=== PATIENT | female | born 1970 | race Caucasian/White ===

== ENCOUNTER 2018-08-18 01:28 | Outpatient (CLI) | payer OTHER, SELFPAY ==
[2018-08-18 08:43] LABS: Absolute Basophil Count 0.01 k/cumm (0.0-0.2); Absolute Eosinophil Count 0.06 k/cumm (0.0-0.7); Absolute Monocyte Count 0.33 k/cumm (0.11-0.7); Absolute Neutrophil Count 2.09 k/cumm (1.2-6.7); Basophils % 0.3; Eosinophils % 1.8; HCT 42.8 % (36.0-46.0); HGB 14.7 g/dL (12.0-15.5); Lymphocytes % 26.5; Mean Corp. HGB Concentration 34.3 g/dL (32.0-36.0); Mean Corpuscular Hemoglobin 29.8 pg (27.0-33.0); Mean Corpuscular Volume 86.8 fL (80-95); Mean Platelet Volume 9.7 fL (8.0-11.0); Monocytes % 9.7; Neutrophils % 61.7; Platelet Count 236 x1000/uL (130-400); RBC 4.93 m/cumm (4.00-5.20); RBC Distribution Width 12.8 % (11.7-14.6); White Blood Cell Count 3.39 k/cumm (4.4-10.8)
[2018-08-18 09:37] LABS: ALT 26 U/L (12-78); AST 17 U/L (15-37); Albumin 3.9 g/dL (3.4-5.0); Alkaline Phosphatase 58 U/L (46-116); Anion Gap 6.9 mmol/L (3-11); BUN 10 mg/dL (7-18); Bilirubin, Total 0.6 mg/dL (0.2-1.0); CO2 30.1 mmol/L (21.0-32.0); CREATININE 0.81 mg/dL (0.55-1.02); Calcium 9.3 mg/dL (8.5-10.1); Chloride 102 mmol/L (98-107); Cholesterol 268 mg/dL (50-200); Glucose 106 mg/dL (70-100); HDL Cholesterol 57 mg/dL (40-60); LDL CHOLESTEROL 196 mg/dL (<100); Sodium 139 mmol/L (136-145); TSH (W/Ref FT4) 1.61 uIU/mL (0.358-3.74); Total Protein 7.1 g/dL (6.4-8.2); Triglyceride 52 mg/dL (30-150)
[2018-08-18 17:14] LABS: Estradiol 85 pg/ml
== END 2018-08-18 01:48 ==
PROVIDERS: Obstetrics & Gynecology; PCP Family Medicine; Visit Provider Family Medicine
DX: E78.01 Familial hypercholesterolemia (principal); K21.9 Gastro-esophageal reflux disease without esophagitis; R63.5 Abnormal weight gain; N92.6 Irregular menstruation, unspecified
CPT/HCPCS: 36415; 80053; 80061; 83721; 82670; 84443; 85025

== ENCOUNTER 2018-09-07 00:13 | Outpatient (CLI) | payer OTHER, SELFPAY ==
--- NOTE | 2018-09-07 06:54 | DI.US_ITS ---
SYMPTOMS/DIAGNOSIS: H/O ENDOMETRIAL HYPERPLASIA, N85.0 PELVIC ULTRASOUND: The uterus measures 8.5 cm in length, 6.0 cm in height and 7.9 cm in width with an endometrial stripe thickness of 6.1 cm. There are multiple uterine fibroids, the largest of which measures 3.1 x 3.3 x 3.3 cm in the right uterine fundus. A small quantity of fluid is identified in the endometrial cavity. An IUD is noted in good position. There is a small nabothian cyst. The right ovary measures 3.6 x 2.7 x 3.4 cm, the left ovary 3.5 x 2.1 x 2.2 cm. Bilateral follicular cysts are identified. SUMMARY: Multiple uterine fibroids are demonstrated. An IUD is in good position in the endometrial cavity.
--- NOTE | 2018-09-07 09:00 | DI.MAMMO_ITS ---
SYMPTOM/DIAGNOSIS: SCREENING, Z12.31 MAMMOGRAMS: Mammograms were interpreted according to the usual protocol including computer analysis with CAD system, tomosynthesis and C view imaging. The breast tissue is of moderate radiodensity. There is no evidence of a mass. There are no suspicious calcifications and there has been no significant interval change when compared with prior images. IMPRESSION: No evidence of malignancy, category 1. Yearly screening mammography is recommended. Breast density, Category B. SA ASSESSMENT OF FINDINGS: Negative. Category 1. Patient will receive a letter notifying them of these results. BI-RADS category B. There are scattered areas of fibroglandular density.
== END 2018-09-07 00:33 ==
PROVIDERS: PCP Family Medicine; Visit Provider Obstetrics & Gynecology
DX: N85.00 Endometrial hyperplasia, unspecified (principal); D25.9 Leiomyoma of uterus, unspecified; Z97.5 Presence of (intrauterine) contraceptive device; Z12.31 Encounter for screening mammogram for malignant neoplasm of breast
CPT/HCPCS: 77063; 77067; 76830; 76856

== ENCOUNTER 2021-05-30 12:27 | Outpatient (REF) | payer OTHER, SELFPAY ==
--- NOTE | 2021-05-30 10:00 | PAPFT_PTH ---
PATIENT: Iris Cole LOC: [facility] U#:[id number] AGE/SX: 50/F ROOM: RE05/30/[address]: WILMER Telles : 1970 BED: DIS: 05/30/2021 SPEC #: [id number] RECD: 05/30/21 12:54 STATUS: SANTINO REQ #: [id number] NATALEE: 05/30/21 10:[address]: Pam Castro DEPT: [facility] Cytology RECD BY: Krysta Chris ENTERED: 05/30/21 12:54 SP TYPE: PAPFT OTHR DR: Sabrina Simpson MD, DC Tissues: 1 - CX/ENDOCX FOR PAP SMEARS Procedures: PAP THIN PREP/UVM Screening HPV DNA PROBE Comments: [id number]
== END 2021-05-30 12:28 | disposition home or self-care (01) ==
LOC: LBN 12:27
PROVIDERS: PCP Family Medicine; Visit Provider Nurse Practitioner Family
DX: Z12.4 Encounter for screening for malignant neoplasm of cervix (principal); Z11.51 Encounter for screening for human papillomavirus (HPV)
CPT/HCPCS: 88142; 87624

== ENCOUNTER 2021-09-09 03:12 | Outpatient (CLI) | payer OTHER, SELFPAY ==
[2021-09-09 10:25] LABS: Source Nasal/Nares
[2021-09-09 19:41] LABS: COVID-19 PCR Negative (Negative)
== END 2021-09-09 03:13 | disposition home or self-care (01) ==
LOC: LBO 03:12
PROVIDERS: PCP Family Medicine; Visit Provider Obstetrics & Gynecology Gynecology
DX: Z20.822 Contact with and (suspected) exposure to COVID-19 (principal); Z01.818 Encounter for other preprocedural examination
CPT/HCPCS: 87635

== ENCOUNTER 2021-09-09 04:06 | Outpatient (CLI) | payer OTHER, SELFPAY ==
[2021-09-09 08:19] LABS: HCT 42.8 % (36.0-46.0); HGB 13.9 g/dL (11.2-15.7); MCHC 32.5 % (32.0-36.0); MCV 89 fL (80-95); MPV 9.3 fL (8.0-11.0); Platelet Count 269 10^3/uL (130-400); RDW 12.7 % (11.7-14.6); RDW-SD 41.9 fL; WBC 4.93 10^3/uL (4.4-10.8)
[2021-09-09 10:00] LABS: Anion Gap 8.7 mmol/L (3-11); BUN 15 mg/dL (7-18); CO2 25.3 mmol/L (21.0-32.0); CREATININE 0.7 mg/dL (0.55-1.02); Calcium 8.6 mg/dL (8.5-10.1); Chloride 104 mmol/L (98-107); Glucose 107 mg/dL (74-106); Potassium 4.2 mmol/L (3.5-5.1); Sodium 138 mmol/L (136-145)
== END 2021-09-09 04:07 | disposition home or self-care (01) ==
LOC: LBO 04:06
PROVIDERS: PCP Family Medicine; Visit Provider Obstetrics & Gynecology Gynecology
DX: N93.8 Other specified abnormal uterine and vaginal bleeding (principal); D25.9 Leiomyoma of uterus, unspecified; Z01.818 Encounter for other preprocedural examination; Z01.812 Encounter for preprocedural laboratory examination
CPT/HCPCS: 36415; 80048; 85027; 86850; 86900; 86901

== ENCOUNTER 2021-09-11 10:32 | Observation (INO) | payer OTHER, SELFPAY ==
[2021-09-11] VITALS (22 sets, daily range): BP systolic 84–132; BP diastolic 40–78; PULSE 58–86; RESP 12–20; TEMP 35.9–36.7; O2SAT 93–100; BMI 28.0
--- NOTE | 2021-09-11 06:55 | W.ANESPRE ---
General Info Date of Service Date Performed: 09/11/21 Height: 5 ft 6.5 in Weight: 80 kg Body Mass Index (BMI): 28.0 Surgical Procedure: Operation Date: 09/11/21 07:40 Proposed Procedure Side Surgeon p Hysterectomy Vaginal Laparoscopic Assist w/Bladder Cystectomy Tabitha Bach MD Meds Allergies and Home Medications Allergies Allergy/AdvReac Type Severity Reaction Status Date / Time Sulfa (Sulfonamide Allergy Intermediate SWELLING Verified 09/11/21 06:26 Antibiotics) AND RASH Home Medication Medication Instructions Recorded levonorgestrel 20 mcg/24 hours (7 1 insert intrauterine ONCE #1 05/11/18 yrs) 52 mg intrauterine device implant (Mirena) vitamin B complex (B 1 tab PO DAILY 08/24/18 Complex-Vitamin B12 tablet) ascorbic acid (vitamin C) 1,000 mg 1 g PO DAILY 07/04/21 tablet cholecalciferol (vitamin D3) 25 25 mcg PO DAILY 07/04/21 mcg (1,000 unit) capsule dindolylmethane 1 cap PO DAILY 07/04/21 Current Visit Medications: Current Medications Generic Name Dose Route Start Last Admin Trade Name Freq PRN Reason Stop Dose Admin Ringer's Solution 1,000 mls @ 125 mls/hr 09/11/21 06:00 IV 10/10/21 23:59 INFUSION RASHMI Cefazolin Sodium/Dextrose 2 gm in 50 mls @ 100 mls/hr 09/11/21 06:00 Ancef Duplex IVPB 10/10/21 23:59 PREOP RASHMI IV Miscellaneous Supplies 1 each 09/11/21 06:00 Iv Access IV 10/10/21 23:59 DIRECTED RASHMI Sodium Chloride 0 ml 09/11/21 06:00 Normal Saline Flush 10 Ml Syr IV 10/10/21 23:59 PRN PRN Sodium Chloride 0 ml 09/11/21 06:00 Normal Saline 10 Ml Vial IJ 10/10/21 23:59 DIRECTED PRN Sterile Water 0 ml 09/11/21 06:00 Water,Injection,Sterile 10 Ml Vial IJ 10/10/21 23:59 DIRECTED PRN PFSH Active Problems Active Problems: Problem Status Onset Code Uterine fibroid D25.9 Abnormal uterine bleeding (AUB) N93.9 Family history of AK (myocardial infarction) Z82.49 Hypercholesterolemia E78.00 Gastroesophageal reflux disease K21.9 Familial hypercholesterolemia 02/26/15 E78.01 Family history of pancreatitis 06/15/14 Z83.79 Endometrial hyperplasia, unspecified 09/07/12 N85.00 Chronic endometritis 08/28/17 N71.1 Anxiety F41.9 Medical History Medical History Comments:: Per pt. states her father stops breathing when he has anesthesia, pt. states he does have sleep apnea Surgical History Surgical History CYST REMOVAL (~08/2012) FROM HEAD Tobacco Smoking/Tobacco Use Status: Never Alcohol Alcohol Intake: current Alcohol intake frequency: 3 or more drinks per day Alcohol type: wine Substance Use Substance use: Never Substance use type: does not use Prental History History 2 Para 2 Hx # Term Pregnancies Multiple births Hx # Pregnancies Ectopic pregnancies AB induced Hx Number of Living Children 2 AB spontaneous Vital Signs and Lab Results Vital Signs Most Recent Vital Signs in EMR: Most Recent Vital Signs Temp Pulse Resp BP Pulse Ox 36.7 C 86 18 132/78 100 09/11/21 06:20 09/11/21 06:20 09/11/21 06:20 09/11/21 06:20 09/11/21 06:20 Lab Results Blood Type / Crossmatch: Patient ABO/Rh O Positive 09/09/21 Antibody Screen NEGATIVE 09/09/21 Complete Blood Count: White Blood Count 4.93 10^3/uL (4.4-10.8) 09/09/21 08:10 Red Blood Count 4.80 10^6/uL (3.93-5.22) 09/09/21 08:10 Hemoglobin 13.9 g/dL (11.2-15.7) 09/09/21 08:10 Hematocrit 42.8 % (36.0-46.0) 09/09/21 08:10 Platelet Count 269 10^3/uL (130-400) 09/09/21 08:10 Complete Metabolic Panel: Sodium Level 138 mmol/L (136-145) 09/09/21 08:10 Potassium Level 4.2 mmol/L (3.5-5.1) 09/09/21 08:10 Chloride Level 104 mmol/L (98-107) 09/09/21 08:10 Carbon Dioxide Level 25.3 mmol/L (21.0-32.0) 09/09/21 08:10 Blood Urea Nitrogen 15 mg/dL (7-18) 09/09/21 08:10 Creatinine 0.7 mg/dL (0.55-1.02) 09/09/21 08:10 Estimated GFR/1.73 m2 >= 60.00 (mL/min/1.73m2) 09/09/21 08:10 Calcium Level 8.6 mg/dL (8.5-10.1) 09/09/21 08:10 Glucose Level 107 mg/dL (74-106) H 09/09/21 08:10 Liver Function Panel: No Data to Display Coagulation Panel: No Data to Display Cardiac Panel: No Data to Display Arterial Blood Gas: No Data to Display Venous Blood Gas: No Data to Display Pancreas Panel: No Data to Display Thyroid Panel: No Data to Display Infectious Disease: Coronavirus (COVID-19)(PCR) Negative (Negative) 09/09/21 08:33 Coronavirus 2019 Source Nasal/Nares 09/09/21 08:33 Blood Cultures: No Data to Display Toxicology Panel: No Data to Display Panel: No Data to Display Anesthesia Assessment and Plan Anesthesia History Personal History: No History of Anesthesia Complications Family History: Other (Father has CAREN and stops breathing with anesthesia ) Exercise Tolerance Exercise Tolerance: Metabolic Equivalents>4 Pertinent Negatives Pertinent Negatives: No Symptoms of GERD, No Major Cardiovascular Symptoms or Complaints, No Major Pulmonary Symptoms or Complaints and No History of CVA/TIA Cardiac & Pulmonary Exam Cardiac Exam: Normal S1/S2 Heart Sounds Pulmonary Exam: Clear Bilateral Breath Sounds Implantable Cardiac Device Does patient have a Pacemaker or an ICD?: No Airway Exam Known Difficult Airway: No Mallampati Class: 1 Mouth Opening: Normal (> 3cm) Thyromental Distance: Greater than 3 cm Neck Range of Motion: Full ROM Neck Circumference: Normal Teeth Condition: Normal Dentition Airway Comments: Permanent retainer bottom- cannot be removed ASA Classification ASA Score: ASA 2 Emergency Case?: No NPO Status NPO Status: NPO Clears >2 hours, Solids >8 hours Status Status: Negative HCG Anesthesia Plan Resuscitation Status: Full Code Anesthesia Technique: General Anesthesia Airway Planned: Endotracheal Tube Monitors Used: Standard Monitors
[2021-09-11] MEDS: Lactated Ringers 1,000 ML 125 ML IV ×4 (06:57→19:49)
[2021-09-11] MEDS: ceFAZolin 2 GM/50 ML BAG IVPB (07:54)
--- NOTE | 2021-09-11 08:48 | W.ANESPROC ---
Intrathecal Analgesia Date Performed: 09/11/21 Procedure Time: 07:50 Requesting Provider: Tabitha Bach Procedure Location: Operating Room (1) Reason Performed: Postoperative Pain Standard Monitors Applied: ECG, Blood Pressure and SpO2 Patient Position: Sitting Timeout Performed: Yes Sedation Given (Indicate Dose Given): Versed IV Dose:: 2mg Patient Mental Status: Sedate with meaningful communication Sterility: Hand Hygiene, Surgical Cap, Surgical Mask, Sterile Gloves, Sterile Drape/Sheet, Eye Protection and Chlorhexidine Placement Site: L3-L4 Interspace Spinal Needle Type: Meet 25 Gauge Needle Length: 3.5 Inch Spinal Procedure: Site Prepped, Sterile Drape Placed, 1% Lidocaine to skin and subcutaneous tissue with 25G needle, Introducer Needle Used, Spinal Needle Placed, Negative Heme, Positive CSF Flow and Medication Injected Paresthesia: None Spinal Local Anesthetic (Indicate Dose Given): None Additives (Indicate Dose Given): Fentanyl PF Dose:: 15 mcg and Duramorph PF Dose:: 200 mcg Ultrasound: Not Used Number of Attempts (See previous attempts in note section): 1 Procedure Tolerated: No Complications and Patient tolerated well Procedure Outcome: Successful Performed By: Mikie Luciano
--- NOTE | 2021-09-11 09:50 | UTER_PTH ---
PATIENT: Iris Cole LOC: [facility] U#:[id number] AGE/SX: 50/F ROOM: OBS.306 RE09/11/[address]: Tabitha Bach : 1970 BED: A DIS: 09/12/2021 SPEC #: [id number] RECD: 09/11/21 12:56 STATUS: SANTINO REQ #: [id number] NATALEE: 09/11/21 09:[address]: Tabitha Bach DEPT: Surgical Specimen RECD BY: Krysta Chris ENTERED: 09/11/21 12:57 SP TYPE: UTER OTHR DR: Sabrina Simpson MD, DC Tissues: 1 - UTERUS W OR W/O OVARIES(NOT TUMOR/PROLAPSE) Procedures: GROSS AND MICRO LEVEL 5 Comments: [id number]
[2021-09-11] MEDS: Lidocaine 1% Multi-Dose W/EPI 1/100,000 50 ML VIAL (10:28)
--- NOTE | 2021-09-11 10:59 | ROE_ITS ---
Date of service: 09/11/21 Time of Service: 09:59 Operative Note Operative Note DATE OF PROCEDURE: 09/11/21 PRE-OP DIAGNOSIS: AUB, dysmenorrhea, fibroid uterus POST-OP DIAGNOSIS: same PROCEDURE: LAVH with bilateral salpingectomy and bladder cystoscopy SURGEON: Tabitha Bach ASSISTING SURGEON: Laura Prakash Refer to Anesthesia Record ESTIMATED BLOOD LOSS: 700 PATHOLOGY: other (uterus, bilateral fallopian tubes to pathology) COMPLICATIONS: None Patient was transported to: PACU Patient's condition: stable Indications: Pt is a 50yo female with longstanding hx of heavy menses not responsive to placement of a Levonorgestrel IUD. She continued with intermittent heavy menses and accompanying pelvic pain. Findings: Enlarged uterus with fibroid occupying fundus of uterus. IUD string not visualized at the cervix during the vaginal portion of the case. After the uterus was removed it was bivalved and the Levonorgestrel IUD was retrieved from inside the uterine cavity. Normal ovaries, normal upper abdomen. Appendix was not visualized. Cystoscopy was performed at completion of the case. Brisk efflux of urine from the both ureteral orifces visualized. Procedure Description: Patient was taken to the operating room where she was placed in the sitting position and spinal anesthesia was administered. She received 2 g of Ancef prior to skin incision. She was then placed in the dorsal supine position and general endotracheal anesthesia was administered without difficulty. She was then placed in the dorsal lithotomy position in [facility] stirrups with SCDs in place. After being prepped and draped in the usual sterile fashion a surgical timeout was performed. Phillips catheter was placed to gravity drainage. A bivalve speculum was placed in the vagina the anterior lip of the cervix was grasped with a single-tooth tenaculum. A Jo-Ann uterine manipulator was successfully inserted into the uterine cavity, the catheter bulb inflated with 8 cc of normal saline and the device left in place. Attention was then turned to the patient's abdom en. The umbilical fold was infiltrated with quarter percent Marcaine without epinephrine. A scalpel was then used to make a 12mm vertical skin incision in the umbilical fold. Two penetrating towel clips were used to tent up the skin and through the periumbilical incision and a Veres needle was introduced into the abdomen with carbon dioxide as the distention medium. Intra-abdominal placement was confirmed by a drop in the intra-abdominal pressure. Once a pneumoperitoneum was established a 12 mm Visiport was placed under direct visualization and intra-abdominal placement confirmed by use of the laparoscope. Patient was then placed in Trendelenburg position. At two sites approximately 6 cm diagonally from the umbilical incision the skin was infiltrated with 1cc of 0.25% Marcaine without epinephrine, incised with a scalpel and two 5 mm lower ports were placed under direct visualization. After careful inspection of the pelvis a LigaSure electrocautery device was used to clamp, cauterize and transect the left fallopian tube remnant from its attachment to the surface of the left ovary. It was then delivered through the 12mm umbilical port. Left ovarian ligament was then similarly clamped cauterized and transected from its attachment to the body of the uterus. The left round ligament and broad ligament were then clamped, cauterized and transected to the level of the lower uterine segment. The vesico-uterine peritoneum was incised and the the from the lower uterine segment and mobilized off of the body of the cervix. The pedicles of the suspensory, round and broad ligaments were inspected and noted to be hemostatic. On the contralateral side the right fallopian tube remnant was clamped,cauterized and transected from the body of the R ovary. It was then delivered through the 12mm umbilical port. The ovarian ligament, round, and right broad ligaments were sequentially clamped, cauterized and transected using the Ligasure device to the level of the insertion of the uterine artery. The remaining the vesicouterine peritoneum was incised across the lower uterine segment and the bladder flap created using the Ligasure device and gentle counter traction. All pedicles were inspected and noted to be hemostatic. Decision was made to proceed with the vaginal portion of the case. Laparoscopic instruments were removed from the ports , the pneumoperitoneum was reduced, and the was abdomen covered with sterile drape. A weighted vaginal speculum was placed in the vagina and the anterior and posterior lips of the cervix were grasped with Anjel clamps. A solution of 1% lidocaine with dilute epinephrine was used to infiltrate the body of the cervix in a circumferential fashion followed by a circumferential incision of the cervical epithelium with Bovie electrocautery. The vesicouterine fascia was identified and the anterior cul-de-sac was entered using blunt and sharp disection. Through this incision a curved right angled retractor was inserted and used to retract the bladder away from the operative field. The posterior cul-de-sac was entered sharply and through the this incision a long billed weighted speculum was placed. The left and right uterosacral ligament complexes were identified clamped, transected and suture-ligated and the suture held long. The remaining right and left broad ligament attatchments were sequentially clamped, cauterized, and transected and the specimen was passed off of the operative field. All of the pedicle sites were inspected and were hemostatic. The vaginal cuff was reapproximated in a vertical fashion with a running locked suture of 0 Vicryl. Instruments removed from the vagina and attention was again turned to the abdomen where a pneumoperitoneum was reestablished and the pelvis inspected using the laparoscope. The vaginal cuff was intact and was hemostatic as were the round ligament and broad ligament pedicles both at 15mmHg and when the pressure was temporarily reduced to 5mmHg. The instruments were removed from the port sites under direct visualization, the pneumoperitoneum reduced, and the ports removed. The fascia of the periumbilical skin incision was closed with interrupted suture of 0 Vicryl. The skin of all port site incisions were reapproximated with a subcuticular closure of 4-0 Monocryl and and covered with skin glue. A cystoscopy was performed with both ureteral jets patent with a brisk reflux of urine from each. The bladder was inspected and no evidence of sutures were present. Phillips catheter was reinserted to gravity drainage and the patient was placed in the dorsal supine position, awakened, extubated, and transported recovery area in stable condition. All sponge lap needle counts correct x2.
[2021-09-11] MEDS: HYDROmorphone 2 MG/ML VIAL IVP ×2 (11:22→11:24)
--- NOTE | 2021-09-11 12:51 | W.ANESPOSTOP ---
Postoperative Evaluation Date, Time and Location Date Performed: 09/11/21 Time Performed: 12:51 Patient Location: PACU Vital Signs Most Recent Imported Vital Signs: Most Recent Vital Signs Temp Pulse Resp BP Pulse Ox 36.6 C 61 15 96/45 L 100 09/11/21 12:39 09/11/21 12:39 09/11/21 12:39 09/11/21 12:39 09/11/21 12:39 Pain Score Most Recent Pain Score: Most Recent Pain Score Pain Level 4 09/11/21 12:39 Assessment Mental Status: Awake (Alert & Oriented to Patient Baseline) Airway and Respiratory Function: Patent airway with normal (patient baseline) respiratory exam Cardiovascular Function: Hemodynamically Stable Hydration Status: Adequately Hydrated Nausea & Vomiting: No Nausea or Vomiting Pain: Pain is tolerable per patient Peripheral Nerve Block: Patient did not receive a nerve block
[2021-09-11] MEDS: Ketorolac 30 MG/ML VIAL IVP ×2 (16:06→22:10)
[2021-09-11] MEDS: Ondansetron 4 MG/2 ML VIAL IVP ×2 (16:21→22:15)
[2021-09-11] MEDS: Scopolamine 1 MG/3 DAYS PATCH TD (17:11)
[2021-09-11] MEDS: Docusate Sodium 100 MG CAP PO (19:48)
[2021-09-12 03:15] VITALS: BP 112/59; PULSE 57; RESP 18; TEMP 36.6; O2SAT 95
[2021-09-12] MEDS: Lactated Ringers 1,000 ML 125 ML IV (03:39)
[2021-09-12] MEDS: Ketorolac 30 MG/ML VIAL IVP (04:07)
[2021-09-12] MEDS: Ondansetron 4 MG/2 ML VIAL IVP (04:10)
[2021-09-12 07:01] LABS: HCT 34.8 % (36.0-46.0); HGB 11.2 g/dL (11.2-15.7); MCH 28.8 pg (27.0-33.0); MCHC 32.2 % (32.0-36.0); MCV 90 fL (80-95); MPV 9.7 fL (8.0-11.0); Platelet Count 226 10^3/uL (130-400); RBC 3.89 10^6/uL (3.93-5.22); RDW 12.9 % (11.7-14.6); RDW-SD 42.2 fL; WBC 14.01 10^3/uL (4.4-10.8)
[2021-09-12 07:30] VITALS: BP 111/64; PULSE 61; RESP 14; TEMP 36.7; O2SAT 100
[2021-09-12] MEDS: Docusate Sodium 100 MG CAP PO (07:58)
[2021-09-12] MEDS: Cholecalciferol (Vitamin D3) 1,000 UNIT TAB 1000 UNITS PO (07:59)
[2021-09-12] MEDS: Ascorbic Acid 500 MG TAB 1000 MG PO (07:59)
--- NOTE | 2021-09-12 10:33 | W.PM.DS.N ---
Date of service: 09/12/21 Time of Service: 09:33 DS: Diagnosis Discharge Diagnosis (1) Fibroid uterus: Status: Deleted (2) Uterine fibroid: Status: Acute (3) S/P laparoscopic assisted vaginal hysterectomy (LAVH): Status: Acute Discharge Plan Disposition Patient Disposition: HOME Condition: Improving Discharge Details Reason For Visit: Laparoscopic assisted vaginal hysterectomy Admit Date/Time: 09/11/21 10:32 Admit Provider: Tabitha Bach Attending Provider: Tabitha Bach Primary Care Provider: Sabrina Simpson Hospital Course Hospital Course: Patient was admitted the morning of surgery and underwent scopic assisted vaginal hysterectomy with bilateral salpingectomy and bladder cystoscopy. She was discharged home on postop day #1 tolerating a regular diet and using ibuprofen and Percocet for pain control. Plan is to have [facility] Home Meds and New Rx's Prescriptions: New oxycodone-acetaminophen 5-325 mg Tablet 1 tab PO Q6H PRN PRNQty: 5 0RF Discontinued Mirena 20 mcg/24 hr (5 years) intrauterine device 1 insert Intrauterine ONCE Qty: 1 Label Comments: Mirena IUD placed on 05/11/2018. Lot [id number], EXP: 08/2020 Rx Instructions: IUD placed 2013 No Action vitamin B complex [B Complex-Vitamin B12] tablet 1 tab PO DAILY dindolylmethane 1 cap PO DAILY ascorbic acid (vitamin C) 1,000 mg tablet 1 g PO DAILY cholecalciferol (vitamin D3) 25 mcg (1,000 unit) capsule 25 mcg PO DAILY Discharge Instructions Additional Instructions: You may use the Percocet if your pain is not relieved by hopr-gvy-fccjobg ibuprofen (Motrin) take 600 mg of the ibuprofen every 6 hours as needed for pain. You may shower when you go home. Change the Band-Aid so that it is dry after you shower. Leave the Steri-Strips in place until they fall off. Nothing in the vagina no tampons no intercourse until your 6-week appointment. Keep your 2-week appointment with Dr. 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/Incision Activity:: Activity as Tolerated Equipment/Supplies:: No Equipment Needed Diet:: As Tolerated Discharge Orders Discharge Orders: Discharge Order (Routine); Ordered 09/12/21 Ordered By: Tabitha Bach DS: Summary Time Spent with Patient providing and/or coordinating discharge services: Less than 30 minutes Status at Discharge Functional status at discharge: independent ambulation Overall status at discharge: patient is back to baseline Mental Status: mental status grossly normal Speech and Movement: speech and movement normal Mood: congruent mood Affect: normal affect Exam Const General: no acute distress Nutritional Appearance: average body habitus Orientation: alert, awake and oriented x3 Resp Effort & Inspection: normal respiratory effort Auscultation: clear to auscultation bilaterally Cardio Rate: regular rate Rhythm: regular rhythm GI Inspection: incision (Covered with Steri-Strips and Band-Aids) Palpation: soft and nontender Auscultation: normal bowel sounds Rectal Exam - female: deferred Skin General skin exam: no rashes or lesions noted Extrem General: normal to inspection and no clubbing, cyanosis or edema Psych Appearance: grossly normal Mental Status: mental status grossly normal Speech and Movement: speech and movement normal Mood: congruent mood Affect: normal affect Attitude: cooperative DS: Data Vitals/I&O Vitals and I&O: Vital Signs Temperature 98.1 F 09/12/21 07:30 Temperature Source Oral 09/12/21 07:30 Pulse 61 09/12/21 07:30 Pulse Rhythm Regular 09/12/21 07:30 Respiratory Rate 14 09/12/21 07:30 Respiratory Effort Non-Labored 09/12/21 07:30 Respiratory Depth Normal 09/12/21 07:30 Respiratory Pattern Normal 09/12/21 07:30 Blood Pressure 111/64 09/12/21 07:30 Pulse Oximetry 100 09/12/21 07:30 Respiratory End-tidal CO2 27 09/11/21 12:39 Oxygen Delivery Method Room Air 09/12/21 07:30 Oxygen Flow Rate 0 09/12/21 07:30 Pain Level 0 09/12/21 03:15 Comment 09/11/21 15:50 Intake & Output 09/11/21 09/11/21 09/12/21 11:59 23:59 11:59 Intake Total 50 / 2194.750 2144.750 / 2194.750 1947.917 / 194.917 Output Total 900 / 1710 810 / 1710 1700 / 1700 Balance -850 / 549.269 9643.750 / 484.750 247.917 / 247.917 Weight 176 lb 5.917 oz 175 lb Intake: IV 50 / 3445.903 1312.750 / 9455.978 8206.917 / 1647.917 Oral 221 / 221 300 / 300 Output: Urine 200 / 610 410 / 610 1700 / 1700 Emesis 400 / 400 Estimated Blood Loss 700 / 700 Other: Urine Color Yellow Indigo Pale Green Urine Appearance Clear Clear Clear Urine Odor None None Comment blue color from bladder cystectomy noted Voiding Methods Indwelling Catheter Toilet Data Completed and Pending Labs on day of discharge: Labs from last 24 hours 09/12/21 06:32 WBC 14.01 H RBC 3.89 L Hgb 11.2 Hct 34.8 L MCV 90 MCH 28.8 MCHC 32.2 RDW 12.9 Plt Count 226 MPV 9.7 PFSH All Active Problems (Updated 09/12/21 @ 10:34 by Tabitha Bach MD) S/P laparoscopic assisted vaginal hysterectomy (LAVH) (Acute) Uterine fibroid (Acute) Abnormal uterine bleeding (AUB) (Acute) Family history of ME (myocardial infarction) (Chronic) Mother at age 65 after 20 years of Statin therapy and h/o hyperlipidemia Hypercholesterolemia (Chronic) Gastroesophageal reflux disease (Chronic) Familial hypercholesterolemia (Acute 06/15/14) Family history of pancreatitis (Acute 06/15/14) Endometrial hyperplasia, unspecified (Acute 09/07/12) initial EM bx: simple EM hyperplasia w/o atypia; repeat EM bx s/p POPs: a second cell line of EM hyperplasia that did not completely respond to POPs; [facility] [place] GynOnc rec'd Mirena IUD, placed 07/04/13. 2016. EMBx: inactive endometrium. Chronic endometritis. Chronic endometritis (Acute 08/28/17) Anxiety (Acute) Surgical History (Updated 09/12/21 @ 10:34 by Tabitha Bach MD) CYST REMOVAL (~08/2012) FROM HEAD Family History Mother Hyperlipidemia Father Essential hypertension Hyperlipidemia Brother Hyperlipidemia Brother No problems noted. Grandfather No problems noted. Grandfather No problems noted. 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 Sexually active: Yes Do you feel safe at home: Yes Do you feel safe in your relationship?: Yes Female Reproductive History Menstrual Age of Menarche: 14 Duration of menses: 6-7 days control method: progestin IUCD ( has had a vasectomy) History History 2 Para 2 Hx # Term Pregnancies Multiple births Hx # Pregnancies Ectopic pregnancies AB induced Hx Number of Living Children 2 AB spontaneous
[2021-09-12] MEDS: Ibuprofen 600 MG TAB PO (10:56)
== END 2021-09-12 11:30 | disposition home or self-care (01) ==
LOC: SUR 11:02 → OBS 13:47
PROVIDERS: Nurse Anesthetist, Certified Registered; Admitting Provider Obstetrics & Gynecology Gynecology; PCP Family Medicine; Visit Provider Obstetrics & Gynecology Gynecology
PROC: 0UT9FZZ Resection of Uterus, Via Natural or Artificial Opening With Percutaneous Endoscopic Assistance (ICD-10-PCS; CPT 58554; principal; 2021-09-11 07:30)
DX: D25.9 Leiomyoma of uterus, unspecified (principal); N94.6 Dysmenorrhea, unspecified; F41.9 Anxiety disorder, unspecified; N85.00 Endometrial hyperplasia, unspecified; K21.9 Gastro-esophageal reflux disease without esophagitis; E78.00 Pure hypercholesterolemia, unspecified; Z82.49 Family history of ischemic heart disease and other diseases of the circulatory system
CPT/HCPCS: 58554; 52000; 36415; 81025; 85027; 85014; 85018; 88307; J0131; J0690; J1100; J1885; J2001; J2250; J2405; J3010; J3475

== ENCOUNTER 2024-08-02 04:02 | Outpatient (CLI) | payer OTHER, SELFPAY ==
[2024-08-02 09:10] LABS: Anion Gap 8.3 mmol/L (3-11); BUN 9 mg/dL (7-18); CO2 27.7 mmol/L (21.0-32.0); CREATININE 0.7 mg/dL (0.55-1.02); Calcium 9.5 mg/dL (8.5-10.1); Calculated LDL 252 mg/dL (<100); Chloride 104 mmol/L (98-107); Cholesterol 334 mg/dL (<200); Estimated GFR 104.65 (mL/min/1.73m2); Glucose 114 mg/dL (74-106); HDL Cholesterol 65 mg/dL (>or=50); Potassium 3.9 mmol/L (3.5-5.1); Sodium 140 mmol/L (136-145); TSH (W/Ref FT4) 1.77 uIU/mL (0.36-3.74); Triglyceride 87 mg/dL (<150)
[2024-08-02 09:18] LABS: Hemoglobin A1C 5.6 % (<5.7)
== END 2024-08-02 04:03 | disposition home or self-care (01) ==
LOC: LBO 04:02
PROVIDERS: Visit Provider Obstetrics & Gynecology
DX: Z13.6 Encounter for screening for cardiovascular disorders (principal); Z01.419 Encounter for gynecological examination (general) (routine) without abnormal findings; Z13.1 Encounter for screening for diabetes mellitus
CPT/HCPCS: 36415; 80048; 80061; 83036; 84443

== ENCOUNTER 2024-08-10 02:07 | Outpatient (CLI) | payer OTHER, SELFPAY ==
--- NOTE | 2024-08-10 06:45 | DI.MAMMO_ITS ---
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 COMPARISON: Available for comparison. FINDINGS: Masses/Architectural Distortion: There is a new 8 mm nodule in the retroareolar region of the left br east. No areas of architectural distortion are seen. Microcalcifications: No suspicious pleomorphic-type are seen. Skin Thickening/Nipple Retraction: None. IMPRESSION: 1. New 8 mm nodule in the retroareolar region of the left breast. 2. Spot compression views requested for further evaluation. Ultrasound should be obtained at that ti me. BI-RADS Category 0 - Incomplete: Need additional imaging evaluation Breast Density - Category B - Scattered areas of fibroglandular density Breast density category C or D implies that the patient has dense breast tissue. Dense breast tissue is very common and is not abnormal but dense breast tissue can make it harder to find cancer on a ma mmogram. Also, dense breast tissue may increase their breast cancer risk. This information about the result of the mammogram report was provided to the patient to raise their awareness. Use this report when you speak with the patient about their risks for breast cancer, which includes their family hist ory. At that time, you may recommend for more screening tests (Ultrasound or MRI) as they might be us eful based on their risk. A negative radiographic report should not delay biopsy if a dominant or clinically suspicious mass is present. Up to ten percent of cancers are not identified on mammography. A negative report may reinforce clinical impression. Adenosis and dense breasts may obscure an underlying neoplasm. False positive reports average 6 to 10%. Patient will receive a letter notifying them of these results.
== END 2024-08-10 02:27 ==
LOC: DI 02:07
PROVIDERS: PCP Nurse Practitioner Family; Visit Provider Obstetrics & Gynecology
DX: Z12.31 Encounter for screening mammogram for malignant neoplasm of breast (principal); Z01.419 Encounter for gynecological examination (general) (routine) without abnormal findings; R92.323 Mammographic fibroglandular density, bilateral breasts
CPT/HCPCS: 77063; 77067

== ENCOUNTER 2024-08-18 01:33 | Outpatient (CLI) | payer OTHER, SELFPAY ==
--- NOTE | 2024-08-18 | DI.US_ITS ---
Exam(s) MG MAMMO SCREEN CALL BACK UNI US BREAST LT LIMITED EXAM: MG MAMMO SCREEN CALL BACK UNI and U/S breast LT limited CLINICAL HISTORY: 8mm nodule retoareolar region of lt breast R92.8 abnl mammo. TECHNIQUE: Craniocaudal and mediolateral oblique Full Field Digital Mammography views of the left br east with Computer Aided Diagnosis followed by Tomosynthesis and limited left breast ultrasound. COMPARISON: Comparison is made with prior examinations. FINDINGS: Mammography/Tomosynthesis: Masses/Architectural Distortion: There is a well-circumscribed nodule at the 9 o'clock position of th e left breast in the retroareolar region very close to the nipple. There are no areas of architectur al distortion. Microcalcifictions: No suspicious pleomorphic-type are seen. Skin Thickening/Nipple Retraction: None. Limited left breast US: Echotexture: Normal appearance of the glandular tissue. Shadowing: No suspicious foci. Cyst: There is a simple cyst seen at the 1 o'clock retroareolar region measuring 0.6 cm maximally. T here is also a cyst seen at the 3 o'clock retroareolar region measuring 3 mm maximally. Solid lesions: None seen. Ductal dilation: At the 9 o'clock position of the left breast, there is an ovoid anechoic area measur ing 7 mm. It sonographically appears represent a duct. Its appearance and location is consistent wi th the finding seen on the mammogram. IMPRESSION: 1. No evidence of malignancy is noted. 2. Unless there is more urgent need, follow-up screening mammography is recommended, as per [employer] guidelines. 3. The findings were discussed with the patient on the date of the examination. BI-RADS Category 2 - Benign Findings Breast Density - Category B-there are scattered areas of fibroglandular density Breast density Category C or D implies that the patient has dense breast tissue. Dense breast tissue can make it harder to find cancer on a mammogram. Dense breast tissue is also associated with an incr eased risk of breast cancer. This information about the result of the mammogram report was provided to the patient to raise their awareness. Use this report when you speak with the patient about their risks for breast cancer, which includes their family history. At that time, you may recommend additional screening tests (Ultrasoun d or MRI) as these tests may add significant information. A negative radiographic report should not delay biopsy if a dominant or clinically suspicious mass is present. Up to ten percent of cancers are not identified on mammography. A negative report may reinforce clinical impression. Adenosis and dense breasts may obscure an underlying neoplasm. False positive reports average 6 to 10%. Patient will receive a letter notifying them of these results.
== END 2024-08-18 01:53 ==
LOC: DI 01:34
PROVIDERS: PCP Nurse Practitioner Family; Visit Provider Obstetrics & Gynecology
DX: M25.511 Pain in right shoulder (principal); M65.221 Calcific tendinitis, right upper arm
CPT/HCPCS: 76642; 77063; 77067

== ENCOUNTER 2024-08-18 13:12 | Outpatient (CLI) | payer OTHER, SELFPAY ==
--- NOTE | 2024-08-18 12:30 | DI.RAD_ITS ---
Exam(s) XR SHOULDER RT COMPLETE 2+V EXAM: XR SHOULDER RT COMPLETE 2+V CLINICAL HISTORY: evaluate pathology, rt shoulder pain,m25.511. TECHNIQUE: 2D digital imaging was performed of the right shoulder. Five images were obtained. AP, Grashey, Y-view and axillary views were obtained. COMPARISON: No exams were available for comparison FINDINGS: BONES: No acute fracture is present. No bony destructive lesion is seen. JOINTS: No dislocation present. The glenohumeral and acromioclavicular joints are well maintained. SOFT TISSUE: There is a calcification adjacent to the humeral head suggesting calcific tendinitis. IMPRESSION: No acute abnormality. Calcific tendinitis. DATA REPOSITORY: RADIATION DOSE DELIVERED:
== END 2024-08-18 13:32 ==
LOC: DI 13:12
PROVIDERS: PCP Nurse Practitioner Family; Visit Provider Nurse Practitioner Family
DX: M25.511 Pain in right shoulder (principal)
CPT/HCPCS: 73030

== ENCOUNTER 2024-09-22 03:51 | Outpatient (CLI) | payer OTHER, SELFPAY ==
--- NOTE | 2024-09-29 14:02 | W.NUTRFU ---
Date of service: 09/22/24 Time of Service: 15:00 Nutrition Note NOTE: Iris referred to nutrition visit for hypercholesterolemia. 08/02/24 labs: total chol: 334, LDL 252, HDL 65. Iris picked up rx for rosuvastatin but not taking yet - wants to see what changes she can influence with diet and lifestyle modification. Had 5.6% A1C last July. Currently no dietary supplements. BMI at last provider appt 08/15/24 was 27.7. Takes psyllium, eatch kimchi and uses benecol spread. Brakfast lately is Fage fat free yogurt with sachin pb, 1/4 cup oats and raspberries with cinnamon. Lunch has been raw salad with lots of veggies dinner typically meat, veg starch. Has familial hypercholesterolemia. Although LDL high, HDL is also high and TGL's wnl. Suggest further advanced lipid testing for LDL partical type/size to better assess heart disease risk. Encouraged low fat, low added sugar, high fiber diet with lots of strategic foods for LDL - garlic, green tea, legumes, oats, soy, citrus, nuts and seeds, greens berries. suggested maybe plant stanol/sterol supplement. Informed Kaila I feel like lowering total fat might be option to go with very low fat diet if she finds curernt efforts are not leading to the number changes she is wanting. Time Spent in Nutritional Counseling and Treatment: 25 min
== END 2024-09-22 03:52 | disposition home or self-care (01) ==
LOC: DS 03:51
PROVIDERS: PCP Nurse Practitioner Family; Visit Provider Dietitian, Registered
DX: E78.01 Familial hypercholesterolemia (principal)
CPT/HCPCS: 123; 97802; 00123

== ENCOUNTER 2025-01-06 01:07 | Outpatient (CLI) | payer OTHER, SELFPAY ==
[2025-01-06 08:18] LABS: Abs Immature Grans 0.01 10^3/uL (0.0-0.06); HCT 41.4 % (36.0-46.0); HGB 14.0 g/dL (11.2-15.7); Immature Grans % 0.2 %; MCH 28.7 pg (27.0-33.0); MCHC 33.8 % (32.0-36.0); MCV 85 fL (80-95); MPV 9.8 fL (8.0-11.0); Platelet Count 251 10^3/uL (130-400); RBC 4.87 10^6/uL (3.93-5.22); RDW 12.8 % (11.7-14.6); RDW-SD 39.6 fL; WBC 4.63 10^3/uL (4.4-10.8)
[2025-01-06 09:16] LABS: Calculated LDL 258 mg/dL (<100); Cholesterol 335 mg/dL (<200); HDL Cholesterol 62 mg/dL (>or=50); Triglyceride 79 mg/dL (<150)
[2025-01-06 19:37] LABS: Hepatitis C Ab w Rflx HCV PCR Negative (Negative)
[2025-01-06 19:42] LABS: HIV-1/2 Ag & Ab Screen Negative (Negative)
[2025-01-06 19:49] LABS: HBs Antibody, Quant 3.8 mIU/mL (See Note); Hepatitis B Surface Antigen Negative (Negative)
== END 2025-01-06 01:08 | disposition home or self-care (01) ==
LOC: LBO 01:07
PROVIDERS: PCP Nurse Practitioner Family; Visit Provider Nurse Practitioner Family
DX: E78.5 Hyperlipidemia, unspecified (principal); Z11.59 Encounter for screening for other viral diseases; Z11.4 Encounter for screening for human immunodeficiency virus [HIV]
CPT/HCPCS: 36415; 80061; 86704; 86706; 86803; 87340; 87389; 85025